=== PATIENT | female | born 2000 ===

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

== ENCOUNTER 2021-08-31 12:56 | Outpatient (REF) | payer OTHER, SELFPAY ==
--- NOTE | 2021-08-31 11:00 | PAPFT_PTH ---
PATIENT: Darlene Dennis LOC: [facility]#:[id number] AGE/SX: 21/F ROOM: RE08/31/[address]: Suzanne Ram : 2000 BED: DIS: 08/31/2021 SPEC #: [id number] RECD: 08/31/21 16:58 STATUS: MANUEL RENéstor #: [id number] PATRICK: 08/31/21 11:[address]: Suzanne Ram DEPT: [facility] Cytology RECD BY: Aruna Castillo ENTERED: 08/31/21 16:58 SP TYPE: PAPFT OTHR DR: Lissette Cervantes Tissues: 1 - CX/ENDOCX FOR PAP SMEARS Procedures: PAP THIN PREP/[facility] Screening Comments: [id number] (CHLAMYDIA/GC)
--- OUTSIDE RECORDS SUMMARY | 2021-08-31 12:59 | XMS_ITS | Continuity of Care Document ---
:2000 External Reference #:[id number] Author Care Team Providers Name Role Phone MANOJ WEEMS Care Team Information Strike Operations Officer Unavailab le Immunizations CPT Code Status Date Vaccine Lot # [id number] Given 02/08/2021 Peerz Covid-19 Vac cine Booster 0.2mL 98967 Given 05/30/2020 Pfizer Covid-19 Sars-Cov-2, mRNA, LNP-S, PF, 30 mcg/ 0.3 mL [id number] Given 05/16/2020 Pfizer Covid-19 Sars-Cov-2, mRNA, LNP-S, PF, 30 mcg/ 0.3 mL 37974 Given 09/25/2016 Meningococcal Conjugate Vacc Intramuscular 74800 Given 09/12/2011 Meningococcal Conjugate Vacc Intramuscular 84967 Given 04/21/2005 MMR Virus Immunization 61341 Given 07/22/2001 MMR Virus Immunization Vital Signs Date Vital Result Comment 03/16/2021 8:41am BP Systolic 134 mmHg BP Diastolic 77 mmHg Heart Rate 81 /min Weight 174.12 lb Weight 78.983 kg BMI (Body Mass Index) 27.3 kg/m2 Height 67 inches 5'7 O2 % BldC Oximetry 97 %
--- OUTSIDE RECORDS SUMMARY | 2021-08-31 12:59 | XMS_ITS | Encounter Summary ---
:2000 Author Organization [facility] Address [address] [place] [address] Care Team Providers Name Role Phone Unavailable Primary Care Provider Unavailable Encounter Details Date Type Department Care Team Description 03/02/2004 Before PRISM Converted [facility] - Geena Bright Visit (Maple) Maple conversion MD Rayshawn [address] [place] [address] Social History Tobacco Use Types Packs/Day Years Used Date Never Assessed Sex Assigned at Date Recorded Not on file documented as of this encounter Plan of Treatment Not on filedocumented as of this encounter Visit Diagnoses Not on filedocumented in this encounter
--- OUTSIDE RECORDS SUMMARY | 2021-08-31 12:59 | XMS_ITS | Continuity of Care Document ---
:2000 External Reference #:[id number] Author Care Team Providers Name Role Phone DANNY OLIVA MD Care Team Information Construction Coordinator Tejas Dang Primary Care Physician Unavailable Vital Signs Date Vital Result Comment 03/14/2021 2:56pm Weight 173.00 lb Weight 78.473 kg Height 67 inches 5'7 BP Systolic 122 mmHg BP Diastolic 74 mmHg Heart Rate 66 /min O2 % BldC Oximetry 98 % BMI (Body Mass Index) 27.1 kg/m2 [place] body weight in kilograms 61 kg
--- OUTSIDE RECORDS SUMMARY | 2021-08-31 12:59 | XMS_ITS | Encounter Summary ---
:2000 Author Organization [facility] Address [address] [place] [address] Care Team Providers Name Role Phone Unavailable Primary Care Provider Unavailable Encounter Details Date Type Department Care Team Description 02/29/2004 Hospital Encounter [facility] Geena Bright Perioperative Services - MD Rayshawn [address] [id number] Social History Tobacco Use Types Packs/Day Years Used Date Never Assessed Sex Assigned at Date Recorded Not on file documented as of this encounter Discharge Disposition Disposition Code Departure Means Destination Home-Health Care Svc documented in this encounter Plan of Treatment Not on filedocumented as of this encounter Visit Diagnoses Not on filedocumented in this encounter
--- OUTSIDE RECORDS SUMMARY | 2021-08-31 12:59 | XMS_ITS | Clinical Summary ---
:2000 Author Organization [facility] Address [address] [place] [address] Care Team Providers Name Role Phone Unknown, Provider Primary Care Provider Social History Tobacco Use Types Packs/Day Years Used Date Never Assessed Sex Assigned at Date Recorded Not on file Last Filed Vital Signs Vital Sign Reading Time Taken Comments Blood Pressure 108/74 01/27/2021 0958 EST Pulse 100 01/27/2021 0958 EST Temperature - - Respiratory Rate - - Oxygen Saturation - - Inhaled Oxygen Concentration - - Weight - - Height - - Body Mass Index - - Plan of Treatment Health Maintenance Due Date Last Done Comments Hepatitis C Screen 2000 COVID-19 Vaccine (1) 2005 Insurance Payer Benefit Plan / Subscriber ID Effective Dates Phone Addre ss Type Group [employer] [facility] [id number] 2014-Present [address] [place] [address] JAYNELEONIE GARDNER Personal/Family Other [phone] (Home) [place] [id number] Darlene Dennis Personal/Family Self [address] (Home) [place] [id number] Darlene Dennis Personal/Family Self [address] (Home) [place] [id number] Darlene Dennis Personal/Family Self 2000 [address]Home) [place] [id number] Darlene Dennis Personal/Family Self [address] (Home) [place] [id number] Darlene Dennis Personal/Family Self 2000 [address] (Home) [place] [address] Darlene Dennis Personal/Family Self 2000 [address]Home) [place] [id number] Care Teams Floral Merchandiser Relationship Specialty Start Date End Date Unknown, Provider, PCP - General 12/06/12
--- OUTSIDE RECORDS SUMMARY | 2021-08-31 12:59 | XMS_ITS | Encounter Summary ---
:2000 Author Organization [facility] Address [address] [place] [address] Care Team Providers Name Role Phone Unknown, Provider Primary Care Provider Encounter Details Date Type Department Care Team Description 03/17/2021 Documentation Visit [facility] - Esteban Wilde, [facility] - [address] [facility] [place], [place] [address] [id number] [place] [address] [phone] Social History Tobacco Use Types Packs/Day Years Used Date Never Assessed Sex Assigned at Date Recorded Not on file documented as of this encounter Progress Notes Chris Wilde, PT - 03/17/2021 1125 EST [facility] [phone] Physical Therapy Discharge Not Seen Recently Medical Diagnosis:?S/P right knee arthroscopic surgery for??medial??plica and lateral meniscus debridement 12/30/20.?? Referring Clinician:??Lissette Cervantes NP Therapy Diagnosis:??Difficulty walking and transferring due to S/P right knee meniscus debridement, 12/30/20.?? Visits:??6 Rehabilitation Precautions/Restrictions:??Per pts reports, no knee flexion beyond 90 degrees during her first week post op. Then, full ROM after.??Per Dr. Cervantes on 01/10/21??scanned note, pt has been WBAT without any true restrictions.??Continue per [facility] meniscus debridement protocol. Reporting Period: 01/27/21 through 02/14/21 Physical Therapy Program to Date: In summary, the program has included: therapeutic exercises. Goal Review: Short-Term Goals Timeframe: 2 weeks, 02/10/21 Goals: ?? 1. Pt will demonstrate an improvement in right knee AROM to 140 flexion to facilitate ease with squatting to low surface.-Met 2. Pt will demonstrate an improvement in gait tolerance to be able to walk at a brisk pace for 1 mile in the community to be able to walk at a functional pace. -Met 3. Pt will demonstrate an improvement in right knee and hip strength to 4+/5 to be able to climb stairs with little difficulty. -Met 4. Pt will demonstrate an improvement in stair climbing ability to be able to descend stairs reciprocally with hand held support at a community pace, to be able to efficiently walk down stairs. -Met 5. Pt will demonstrate the ability to squat down to 110 flexion without hand held support, to be able to squat to low surfaces. -Met ? Long-Term Goals Timeframe: 4 weeks, 02/25/21 1. Pt will demonstrate an improvement in right knee AROM to 140 flexion, and 2 hyperextension without a quad lag to facilitate ease with squatting to low surface as well as walking with good quad control.-Met 2. Pt will demonstrate an improvement in gait tolerance to be able to run [address], to be able to cross a busy street safely. -Met 3. Pt will demonstrate an improvement in right knee and hip strength to 5/5 to be able to climb stairs without difficulty. -Not met 4. Pt will demonstrate an improvement in stair climbing ability to be able to descend stairs reciprocally without hand held support, good quad control, at a community pace, to be able to efficiently walk down stairs while carrying objects. -Met 5. Pt will demonstrate the ability to squat down to 120 flexion without hand held support, to be able to squat to low surfaces. -Met Discharge Reason: Pt returned back to [place]. Discharge patient at this time; future therapy will require a new physician's referral. documented in this encounter Plan of Treatment Not on filedocumented as of this encounter Visit Diagnoses Not on filedocumented in this encounter Care Teams Merchandising Execution Associate Relationship Specialty Start Date End Date Unknown, Provider, PCP - General 12/06/12 documented as of this encounter
[2021-09-02 07:27] LABS: Chlamydia Result Negative (Negative); GC Result Negative (Negative)
== END 2021-08-31 12:57 | disposition home or self-care (01) ==
LOC: NCHCN 12:56
PROVIDERS: PCP Nurse Practitioner Family; Visit Provider Nurse Practitioner Family
DX: Z00.00 Encounter for general adult medical examination without abnormal findings (principal); Z12.4 Encounter for screening for malignant neoplasm of cervix
CPT/HCPCS: 87491; 87591; 88142